=== PATIENT | male | born 1960 | race Caucasian/White ===

== ENCOUNTER → 2017-07-12 14:15 | Outpatient (CLI) | payer OTHER, SELFPAY ==
[2017-07-12 16:18] LABS: Anion Gap 8 (5-15); BUN 10 mg/dL (7-18); BUN/Creat Ratio 13.1 RATIO (10-20); Calcium,Total 8.7 mg/dL (8.5-10.1); Chloride 107 mmol/L (98-107); Cholesterol 197 mg/dL (200); Creatinine, Serum 0.76 mg/dL (0.70-1.30); EST Glomerular Filtration Rate 111 mL/min (>60); Est Glom Filt Rate - Afr Amer 134 mL/min (>60); Glucose 83 mg/dL (74-106); High Density Lipoprotein 32 mg/dL; Potassium 4.1 mmol/L (3.5-5.1); Sodium Level 141 mmol/L (136-145); Triglycerides 142 mg/dL; Very Low Density Lipoprotein 28 mg/dL (5-40)
== END ==
PROVIDERS: Family Provider Family Medicine; PCP Family Medicine; Visit Provider Family Medicine
DX: Z00.00 Encounter for general adult medical examination without abnormal findings (principal)
CPT/HCPCS: 36415; 80048; 80061

== ENCOUNTER → 2018-07-29 16:20 | Outpatient (CLI) | payer OTHER, SELFPAY ==
[2013-06-30 06:23] VITALS: BMI 27.1
--- NOTE | 2018-07-29 16:26 | RAD_ITS ---
STUDY: X-RAY - PELVIS AND RIGHT HIP REASON FOR EXAM: Male, 58 years old. Right hip pain. TECHNIQUE: 3 views of the pelvis and hip. COMPARISON: None. FINDINGS: There is a non-specific bowel gas pattern. There are multiple calcified phleboliths. Normal bilateral iliac wings, sacroiliac joints and visualized sacrum. Normal bilateral superior and inferior pubic rami. Normal pubic symphysis. Normal bilateral ischial tuberosities. There is evidence of bilateral total hip replacements. There is good alignment. RAD/HIP, UNI W/ Pelvis 2-3 Views IMPRESSION: Bilateral total hip replacements. There is good alignment. Electronically Signed: Karthik Perez, at 9:36 EDT , Service support ,
--- NOTE | 2018-07-29 16:26 | RAD_ITS ---
STUDY: X-RAY - LEFT KNEE REASON FOR EXAM: Male, 58 years old. Pain TECHNIQUE: 3 view(s) of the knee. COMPARISON: None. FINDINGS: Normal visualized distal femur. Normal visualized proximal tibia and fibula. Normal proximal tibiofibular articulation. Parenchyma along the medial tibial spine. There is mild to moderate degenerative arthrosis of the medial femorotibial compartment. There is severe degenerative arthrosis of the lateral femorotibial compartment with severe joint space narrowing. There is mild to moderate degenerative arthrosis of the patellofemoral articulation. There is a soft tissue prominence in the suprapatellar region suggesting a small volume joint effusion. The soft tissue structures are unremarkable. RAD/Knee 3 Views IMPRESSION: Severe degenerative changes lateral femoral tibial compartment, mild to moderate degenerative changes of the medial femoral tibial and patellofemoral joint with mild effusion. Electronically Signed: Dariana Mercado MD at 4:45 EDT , Service support ,
== END ==
PROVIDERS: Family Provider Family Medicine; PCP Family Medicine; Referring Provider Family Medicine; Visit Provider Family Medicine
DX: M25.562 Pain in left knee (principal); M25.551 Pain in right hip
CPT/HCPCS: 73502; 73562

== ENCOUNTER → 2019-07-11 12:53 | Outpatient (CLI) | payer OTHER, SELFPAY ==
--- NOTE | 2019-07-11 13:00 | VDLE_ITS ---
Reason For Study: Edema RIGHT GSV is normal. CFV is compressible, spontaneous, phasic, competent and demonstrates normal augmentation. FV is compressible, spontaneous, phasic, competent and demonstrates normal augmentation. POP V is compressible, spontaneous, phasic, competent and demonstrates normal augmentation. T/P Trunk is compressible. PTV is compressible. RT PerV is compressible. Procedure Exam performed in department. A preliminary report was called and/or faxed to [facility]. Interpretation Summary Deep veins of the right lower extremity are patent and compressible segmentally. There is no evidence of right lower extremity deep vein thrombosis. Valvular competence appears intact within the proximal deep venous system on the right . The right great saphenous vein appears patent and compressible segmentally. Ordering Physician: Tyler Bedolla Referring Physician: Corby Daniels Performed By: Bonnie Restrepo RVT
== END ==
PROVIDERS: PCP Family Medicine; Referring Provider Family Medicine; Visit Provider Family Medicine
DX: R60.0 Localized edema (principal)
CPT/HCPCS: 93971

== ENCOUNTER → 2020-01-15 15:39 | Outpatient (CLI) | payer OTHER, SELFPAY ==
[2013-06-30 06:23] VITALS: BMI 27.1
--- NOTE | 2020-01-15 15:42 | RAD_ITS ---
STUDY: X-RAY - LUMBAR SPINE REASON FOR EXAM: Male, 59 years old. Recent low back pain TECHNIQUE: 5 view(s) of the lumbar spine were obtained including oblique views. COMPARISON: None FINDINGS: Normal lumbar lordosis. There is no substantial scoliosis. There is a normal alignment of the vertebrae. There is multilevel endplate spondylosis of the lumbar vertebrae. There is multi-level degenerative disc disease with multi-level disc space narrowing. Facet joint osteoarthritis. Bilateral total hip replacement. There is atherosclerotic calcification of the abdominal aorta without a demonstrated aneurysm. RAD/L/S Spine Min 4 Views IMPRESSION: Degenerative changes of the spine, as detailed above. Electronically Signed: Karthik Perez, at 12:37 EDT , Service support ,
== END ==
PROVIDERS: PCP Family Medicine; Referring Provider Family Medicine; Visit Provider Family Medicine
DX: M54.9 Dorsalgia, unspecified (principal)
CPT/HCPCS: 72110

== ENCOUNTER → 2020-01-21 10:36 | Outpatient (CLI) | payer OTHER, SELFPAY ==
[2013-06-30 06:23] VITALS: BMI 27.1
[2020-01-21 13:01] LABS: Cholesterol 199 mg/dL (200); High Density Lipoprotein 34 mg/dL; Triglycerides 179 mg/dL; Very Low Density Lipoprotein 36 mg/dL (5-40)
== END ==
PROVIDERS: PCP Family Medicine; Referring Provider Family Medicine; Visit Provider Family Medicine
DX: I70.90 Unspecified atherosclerosis (principal)
CPT/HCPCS: 36415; 80061

== ENCOUNTER → 2020-07-21 16:22 | Outpatient (CLI) | payer OTHER, SELFPAY ==
[2013-06-30 06:23] VITALS: BMI 27.1
[2020-07-21 18:24] LABS: Anion Gap 4 (5-15); BUN 12 mg/dL (7-18); BUN/Creat Ratio 15.3 RATIO (10-20); Chloride 106 mmol/L (98-107); Cholesterol 178 mg/dL (200); Creatinine, Serum 0.78 mg/dL (0.70-1.30); EST Glomerular Filtration Rate 107 mL/min (>60); Est Glom Filt Rate - Afr Amer 129 mL/min (>60); Glucose 94 mg/dL (74-106); High Density Lipoprotein 37 mg/dL; Potassium 4.2 mmol/L (3.5-5.1); Sodium Level 140 mmol/L (136-145); Triglycerides 128 mg/dL; Very Low Density Lipoprotein 26 mg/dL (5-40)
== END ==
PROVIDERS: PCP Family Medicine; Referring Provider Family Medicine; Visit Provider Family Medicine
DX: I70.90 Unspecified atherosclerosis (principal)
CPT/HCPCS: 36415; 80048; 80061

== ENCOUNTER → 2021-01-26 16:34 | Outpatient (CLI) | payer OTHER, SELFPAY ==
[2021-01-26 18:24] LABS: Anion Gap 10 (5-15); BUN 9 mg/dL (7-18); BUN/Creat Ratio 11.9 RATIO (10-20); Calcium,Total 9.1 mg/dL (8.5-10.1); Chloride 105 mmol/L (98-107); Cholesterol 188 mg/dL (200); Creatinine, Serum 0.76 mg/dL (0.70-1.30); EST Glomerular Filtration Rate 111 mL/min (>60); Est Glom Filt Rate - Afr Amer 134 mL/min (>60); Glucose 86 mg/dL (74-106); High Density Lipoprotein 36 mg/dL; Potassium 4.4 mmol/L (3.5-5.1); Sodium Level 141 mmol/L (136-145); Triglycerides 169 mg/dL; Very Low Density Lipoprotein 34 mg/dL (5-40)
== END ==
PROVIDERS: PCP Family Medicine; Referring Provider Family Medicine; Visit Provider Family Medicine
DX: Z00.00 Encounter for general adult medical examination without abnormal findings (principal)
CPT/HCPCS: 36415; 80048; 80061

== ENCOUNTER → 2022-01-30 | Outpatient (CLI) | payer OTHER, SELFPAY ==
[2022-01-30 18:14] LABS: Absolute Lymphocyte Count 1.89 X10^3/uL (0.83-4.51); Absolute Neutrophil Count 5.8 X10^3/uL (2.0-7.7); Basophil# 0.08 X10^3/uL; Basophil% 0.9 % (0-1); Eosinophil# 0.28 X10^3/uL; Eosinophils% 3.2 % (0-5); Hematocrit 43.9 % (40-54); Hemoglobin 14.1 g/dL (13.0-16.5); Lymphocyte # 1.89 X10^3/ul (0.83-4.51); Lymphocyte % 21.6 % (19-41); Mean Corp Hgb Conc 32.1 g/dL (32-36); Mean Corpuscular Hgb 27.2 pg (27.0-32.0); Mean Corpuscular Volume 84.7 fL (80-94); Mean Platelet Vol. 8.2 fl (6.2-12.0); Monocyte# 0.62 X10^3/uL; Monocyte% 7.1 % (0-10); NRBC Flagged by Analyzer 0 % (0-5); Neutrophil # 5.82 X10^3/uL (2.7-7.7); Neutrophil % 66.7 % (47-70); Platelet Count 213 K/mm3 (150-450); RBC Distribution Width CV 14.3 % (11.6-14.6); RBC Distribution Width SD 44.2 fl (35.1-43.9); Red Blood Count 5.18 M/mm3 (4.6-6.2); White Blood Count 8.7 K/mm3 (4.4-11.0)
[2022-01-30 18:31] LABS: Anion Gap 7 (5-15); BUN 12 mg/dL (7-18); BUN/Creat Ratio 13.5 RATIO (10-20); Calcium,Total 9.3 mg/dL (8.5-10.1); Chloride 107 mmol/L (98-107); Cholesterol 187 mg/dL (200); Creatinine, Serum 0.89 mg/dL (0.70-1.30); EST Glomerular Filtration Rate 92 mL/min (>60); Est Glom Filt Rate - Afr Amer 111 mL/min (>60); Glucose 113 mg/dL (74-106); High Density Lipoprotein 35 mg/dL; Potassium 4.5 mmol/L (3.5-5.1); Sodium Level 141 mmol/L (136-145); Triglycerides 152 mg/dL; Very Low Density Lipoprotein 30 mg/dL (5-40)
== END | disposition home or self-care (01) ==
LOC: MFPLAB 16:37
PROVIDERS: PCP Family Medicine; Visit Provider Family Medicine
DX: Z00.00 Encounter for general adult medical examination without abnormal findings (principal)
CPT/HCPCS: 36415; 80048; 80061; 85025

== ENCOUNTER 2022-02-04 17:02 | Emergency (ER) | payer OTHER, SELFPAY ==
[2022-02-04 17:02] VITALS: BP 162/102; PULSE 121; RESP 16; TEMP 36.6; O2SAT 97; BMI 31.9
--- NOTE | 2022-02-04 17:24 | ED.RN ---
vein cleansed and wrapped with dressing.
--- NOTE | 2022-02-05 00:09 | EDS_ITS ---
HPI History of Present Illness HPI Narrative: Right ankle bleeding varicose vein. No significant trauma. Chief Complaint: Wound Informant: patient Onset/Context/Timing Onset: Today Context: Gradual Onset Timing: Intermittent Associated Symptoms Associated Symptoms: Negative for Parasthesia, Weakness or Loss of Funtion Narrative Narrative: 61-year-old male past medical history of varicose veins in his lower extremities. He is on no blood thinners. Denies any injury or trauma. Synergist or bleeding this evening. Try to get it to stop and Oozing. He denies any pain. Prior similar symptoms: No Recent Illness/Hospitalization: No PFSH PFSH no medical history Home Medications amitriptyline 50 mg tablet 50 mg PO DAILY 04/17/13 [History Last Taken 06/01/13] aspirin 325 mg tablet,delayed release 325 mg PO BIDCM ##60 07/02/13 [Rx Last Taken Unknown] hydrocodone-acetaminophen 5-325mg 5mg-325mg 1 - 2 tab PO Q6H PRN PRN MILD- MODERATE (PAIN SCALE 1-5) ##90 07/02/13 [Rx Last Taken Unknown] Allergy/AdvReac Type Severity Reaction Status Date / Time No Known Allergies Allergy Verified 02/04/22 17:06 Social History Smoking Status: Never smoker ROS ROS ED ROS Narrative Denies recent illness. Review of Systems ROS Unobtainable: Denies due to encephalopathy Constitutional Constitutional ED: Denies chills Eyes Eyes: Denies blurry vision ENT ENT ED: Denies ear pain Cardiovascular Cardiovascular: Denies chest pain Respiratory/Chest Respiratory/Chest: Denies cough Gastrointestinal Gastrointestinal: Denies abdominal pain Genitourinary Genitourinary ED: Denies dysuria Musculoskeletal Musculoskeletal: Denies arthralgias Integumentary Denies abscess Neurologic Neurologic: Denies headache(s) Psychiatric Psychiatric: Denies anxiety Endocrine Endocrinology: Denies polydipsia Hematologic/Lymphatic Hematologic/Lymphatic: Denies easy bleeding Allergic/Immunologic Allergic/Immunologic ED: Denies mouth swelling or tongue swelling EXAM Physical Exam Narrative Exam Narrative: 59-year-old male no acute distress. Vital signs stable. H EENT exam unremarkable. Lungs clear. Heart tachycardic rate about 115. Abdomen soft nontender. Moving all 4 extremities. Right ankle, medial aspect there are varicose veins. Currently none are actively bleeding. There is a small amount of dried blood. Right foot is neurovascular intact. Calf is nontender. Const Vital Signs: 02/04/22 17:02 Temperature 98 F Temperature Source Temporal Pulse Rate 121 H Respiratory Rate 16 Blood Pressure 162/102 H Blood Pressure Mean 122 Pulse Ox 97 Oxygen Delivery Method Room Air Positive well nourished, well developed and obese; Negative for cachectic, contractures or unkempt General Appearance ED: well developed and NAD; Negative for unkempt, cachectic or contractures Nutritional Appearance: obese; Negative for cachectic HEENT Reports moist mucous membranes normocephalic and atraumatic; Negative for trauma or tenderness Eyes PERRL General Eye ED: Negative for other Neck full ROM and supple Thyroid: Negative for tender Lymph Lymphatic: Negative for other Chest Wall inspection of chest normal and palpation of chest normal Chest: Negative for other Resp normal respiratory effort, no retractions and clear to auscultation bilaterally Effort and Inspection: Negative for pain with movement Auscultation: Negative for rales or rhonchi Cardio regular rhythm, S1 normal heart sound, S2 normal heart sound and no murmurs; Negative for regular rate Rate: tachycardic GI non-tender, non-distended and no masses Inspection: Negative for abdominal distention Auscultation: normoactive bowel sounds Palpation: soft; Negative for tender Back/Spine no CVA tenderness General Back: Negative for CVA tenderness Cervical Spine: Negative for cervical spine tenderness Thoracic Spine / Upper Back: Negative for thoracic spinal tenderness Lumbar Spine / Lower Back: Negative for lumbar spinal tenderness Extremity normal to inspection and full ROM Extremity Narrative: Small amount of dried blood right medial ankle. Varicose veins but not actively bleeding. No wound. General Extremety ED: Negative for cyanosis or edema General Extremity: Negative for cyanosis or edema Neuro oriented x3 and moves all extremities Sensorium / Orientation: alert, oriented to person, oriented to place and oriented to time; Negative for orientation impaired, confused, lethargic or stuporous Motor Exam: strength 5/5 throughout Psych mental status grossly normal Appearance: Negative for unkempt Speech: No other Mood & Affect: Negative for anxious Skin no wounds Lesions: no lesions Rashes: no rashes Trauma: Negative for abrasion or laceration MDM MDM MDM Narrative Medical decision making narrative: 61-year-old male with spontaneous bleeding from a right lower leg varicose vein. Currently bleeding is stopped. Nurses will clean and dress the area. He was instructed to rebleeds direct pressure. If unable to get it to stop return. Discharge Plan Triage Chief Complaint: Wound ED Provider: Carlos Bustos Dx/Rx/DC Orders Instructions: ED Varicose Veins Prescriptions: No Action amitriptyline 50 MG tablet 50 mg PO DAILY Label Comments: MOOD hydrocodone-acetaminophen 1 TABLET tablet 1 - 2 tab PO Q6H PRN PRN (Reason: MILD-MODERATE (PAIN SCALE 1-5)) Qty: 90 0RF Label Comments: PAIN aspirin 325 MG tablet 325 mg PO BIDCM Qty: 60 0RF Label Comments: BLOOD THINNER Primary Care Provider: Corby Daniels Referrals: Corby Daniels MD [Primary Care Provider] - As Needed Activity Restrictions/Additional Instructions: Direct pressure to area for 20-30 minutes if re-bleeds. Keep clean and covered. Follow up [facility] Dr[facility] Mccullough as needed Disposition Disposition: Home, Self Care Discharge Date/Time: 02/04/22 18:16
== END 2022-02-04 18:16 | disposition home or self-care (01) ==
PROVIDERS: Emergency Provider Emergency Medicine; PCP Family Medicine; Visit Provider Emergency Medicine
DX: I83.891 Varicose veins of right lower extremity with other complications (principal); E66.9 Obesity, unspecified
CPT/HCPCS: 99282

== ENCOUNTER → 2022-03-01 | Outpatient (CLI) | payer OTHER, SELFPAY ==
--- NOTE | 2022-03-01 10:12 | EKG12_ITS ---
Test Reason : PRE OP Blood Pressure : / mmHG Vent. Rate : 077 BPM Atrial Rate : 077 BPM P-R Int : 166 ms QRS Dur : 104 ms QT Int : 360 ms P-R-T Axes : 051 -37 073 degrees QTc Int : 407 ms Normal sinus rhythm Left axis deviation Abnormal ECG Confirmed by LUCIO MENDOZA, KYLE ([id number]), non linear editor NIKKY MEZA ([id number]) on 03/02/2022 7:43:50 AM Referred By: Zain Mccullough Confirmed By:KYLE VALDES MD
[2022-03-01 10:44] LABS: Hematocrit 44.7 % (40-54); Hemoglobin 14.6 g/dL (13.0-16.5); Mean Corp Hgb Conc 32.7 g/dL (32-36); Mean Corpuscular Hgb 27.1 pg (27.0-32.0); Mean Corpuscular Volume 82.9 fL (80-94); Mean Platelet Vol. 7.8 fl (6.2-12.0); Platelet Count 200 K/mm3 (150-450); RBC Distribution Width SD 41.6 fl (35.1-43.9); Red Blood Count 5.39 M/mm3 (4.6-6.2); White Blood Count 6.3 K/mm3 (4.4-11.0)
[2022-03-01 11:17] LABS: Anion Gap 3 (5-15); BUN 9 mg/dL (7-18); BUN/Creat Ratio 11.9 RATIO (10-20); Calcium,Total 9.4 mg/dL (8.5-10.1); Chloride 108 mmol/L (98-107); Creatinine, Serum 0.76 mg/dL (0.70-1.30); EST Glomerular Filtration Rate 111 mL/min (>60); Est Glom Filt Rate - Afr Amer 134 mL/min (>60); Glucose 95 mg/dL (74-106); Sodium Level 140 mmol/L (136-145)
== END | disposition home or self-care (01) ==
PROVIDERS: PCP Family Medicine; Referring Provider Surgery; Visit Provider Surgery
DX: Z01.812 Encounter for preprocedural laboratory examination (principal)
CPT/HCPCS: 36415; 80048; 85027; 93005

== ENCOUNTER → 2023-01-31 | Outpatient (CLI) | payer OTHER, SELFPAY ==
[2023-01-31 18:25] LABS: Anion Gap 5 (5-15); BUN 11 mg/dL (7-18); BUN/Creat Ratio 14.6 RATIO (10-20); Calcium,Total 8.8 mg/dL (8.5-10.1); Chloride 108 mmol/L (98-107); Cholesterol 178 mg/dL (200); Creatinine, Serum 0.76 mg/dL (0.70-1.30); EST Glomerular Filtration Rate 111 mL/min (>60); Est Glom Filt Rate - Afr Amer 134 mL/min (>60); Glucose 101 mg/dL (74-106); High Density Lipoprotein 37 mg/dL; PSA,Total - Annual Screen 4.15 ng/mL (0.00-4.00); Potassium 3.9 mmol/L (3.5-5.1); Sodium Level 139 mmol/L (136-145); Triglycerides 97 mg/dL; Very Low Density Lipoprotein 19 mg/dL (5-40)
[2023-01-31 18:27] LABS: Vitamin D,25 Hydroxy 29.7 ng/mL
== END | disposition home or self-care (01) ==
LOC: MFPLAB 16:10
PROVIDERS: PCP Family Medicine; Visit Provider Family Medicine
DX: Z00.00 Encounter for general adult medical examination without abnormal findings (principal)
CPT/HCPCS: 36415; 80048; 80061; 82306; 84153; G0103

== ENCOUNTER → 2023-06-11 | Outpatient (CLI) | payer OTHER, SELFPAY ==
--- NOTE | 2023-06-11 07:30 | EKG12_ITS ---
Test Reason : PREOP Blood Pressure : / mmHG Vent. Rate : 091 BPM Atrial Rate : 091 BPM P-R Int : 162 ms QRS Dur : 100 ms QT Int : 358 ms P-R-T Axes : 027 -38 064 degrees QTc Int : 440 ms Normal sinus rhythm Left axis deviation Abnormal ECG Confirmed by Garo Fernandez ([id number]), development editor NIKKY MEZA ([id number]) on 06/12/2023 9:17:37 AM Referred By: Garo Weinstein Confirmed By:Garo Fernandez
--- NOTE | 2023-06-11 07:31 | CT_ITS ---
CT LEFT LOWER EXTREMITY WITH 3-D IMAGING CLINICAL INDICATION: Pain in left leg. TECHNIQUE: Axial CT images of the left lower extremity (including left hip, left knee, and left ankle) was performed without IV contrast material. Coronal and sagittal reformats were provided. RADIATION DOSAGE (If Supplied By Facility): CTDIvol = ( 17.85 ) mGy, DLP = ( 1423.99 ) mGycm COMPARISON: Left knee radiographs dated 07/29/2018. FINDINGS: Bones: There are bilateral hip replacements with no acute periprosthetic fracture. There is tricompartment degenerative arthrosis of the left knee with joint space narrowing and marginal osteophyte formation, most pronounced in the lateral femorotibial compartment. Intact left ankle. There is degenerative arthrosis at the intercuneiform joints as well as second tarsometatarsal joint of the left foot. Osseous structures are intact without evidence of fracture or dislocation. No lytic or blastic osseous masses. Soft Tissues: There is a small left knee joint effusion. The deep soft tissue structures are unremarkable. The superficial soft tissues are unremarkable without evidence of edema, hematoma, or foreign body. CT/Extremity Lower without Contra IMPRESSION: Tricompartment degenerative arthrosis of the left knee, most pronounced in the lateral femorotibial compartment. Small left knee joint effusion. Electronically Signed: Galo Thornton MD at 9:40 EST Reading Location ID and State: [address] [place] [address] , Service support ,
--- OUTSIDE RECORDS SUMMARY | 2023-06-11 07:31 | XMS RPT_ITS | CCD ---
Author Name Unknown Address [facility] [facility] [address] [place] [address] Organization [facility] Care Team Providers Care Batt Machine Operator Name Role Phone Unavailable Primary Care Provider Unavailabl e Medications Current Medications Medication Drug Class(es) Dates Sig (Normalized) Sig (Original) sulfamethoxazole 800 mg / trimethoprim 160 mg oral tablet (1 source) Dihydrofolate Reductase Inhibitor Antibacterial, Sulfonamide Antimicrobial Start: 01-12-2022 End: 01-19-2022 take 1 tablet by mouth twice daily sulfamethoxazole -trimethoprim (BACTRIM DS) 800-160 mg per tablet Indications: Periorbital cellulitis of right eye Take 1 tablet by mouth twice daily for 7 days. 14 tablet 0 01/12/2022 01/19/2022 Active Completed/Discontinued Medications Medication Drug Class(es) Dates Sig (Normalized) Sig (Original) erythromycin 0.005 mg/mg ophthalmic ointment (1 source) Macrolide, Macrolide Antimicrobial Start: 01-12-2022 erythromycin (ROMYCIN) 5 mg/gram (0.5 %) ophthalmic ointment Indications: Hordeolum externum of right upper eyelid Use 1 application in the right eye three times daily. 3.5 g 0 01/12/2022 Active Problems Problem Classification Problem Date Documented Da te Episodic/Chronic Inflammation; infection of eye (except that caused by tuberculosis or sexually transmitteddisease) (1 source) Hordeolum externum of upper eyelid of right eye; Translations: [Hordeolum externum right upper eyelid] Episodic Skin and subcutaneous tissue infections (1 source) Cellulitis of periorbital region of right eye; Translations: [Periorbital cellulitis] Episodic Results Test Name Value Interpretation Reference Range Facil ity Vital Signs Date Time Vital Sign Value Performing Clinician Cullen ridley 01-12-2022 13:08-0400 Body temperature 98.29 [degF] Jun Back APRN.SENIOR GOVERNMENT PROGRAM ANALYST Work Phone: [facility] 01-12-2022 13:08-0400 Body weight 91.72 kg Jun Back APRN.SENIOR GOVERNMENT PROGRAM ANALYST Work Phone: [facility] 01-12-2022 13:08-0400 Diastolic blood pressure 88 mm[Hg] Jun Back RACE BOARD ATTENDANT.SENIOR GOVERNMENT PROGRAM ANALYST Work Phone: [facility] 01-12-2022 13:08-0400 Heart rate 81 /min Jun Back RACE BOARD ATTENDANT.SENIOR GOVERNMENT PROGRAM ANALYST Work Phone: [facility] 01-12-2022 13:08-0400 Respiratory rate 21 /min Jun Back RACE BOARD ATTENDANT.SENIOR GOVERNMENT PROGRAM ANALYST Work Phone: [facility] 01-12-2022 13:08-0400 SaO2% (BldA) [Mass fraction] 97 % Jun Back RACE BOARD ATTENDANT.SENIOR GOVERNMENT PROGRAM ANALYST Work Phone: [facility] 01-12-2022 13:08-0400 Systolic blood pressure 144 mm[Hg] Jun Back RACE BOARD ATTENDANT.SENIOR GOVERNMENT PROGRAM ANALYST Work Phone: [facility] Encounters Encounter Date Encounter Type Care Provider Facility Start: 01-12-2022 End: 01-12-2022 ambulatory Facility:[facility] Start: 01-12-2022 End: 01-12-2022 Patient encounter procedure Jun Back APRN.SENIOR GOVERNMENT PROGRAM ANALYST Work Phone: [facility] Plan of Treatment Date Care Activity Detail Author Start: 12-29-2021 Influenza vaccination INFLUENZA (#1) [facility] Start: 01-27-2021 COVID-19 VACCINE (3 - Booster for Moderna series) COVID-19 VACCINE (3 - Booster for Moderna series) [facility] Start: 2014 PROSTATE CANCER SCRE ENING DISCUSSION PROSTATE CANCER SCREENING DISCUSSION [facility] Start: 2009 SHINGRIX VACCINE (1 of 2) SHINGRIX V ACCINE (1 of 2) [facility] Start: 2004 COLOGUARD (FIT-DNA) COLOGUARD (FIT-D NA) [facility] Start: 2004 Colonoscopy COLONOSCOPY [facility] Start: 2004 COLORECTAL CANCER SCREENING COLORECTAL CANCER SCREENING [facility] Start: [address] COLONOGRAPHY [facility] Start: 2004 DIABETES SCREEN DIABETES SCREEN [facility] Start: 2004 FECAL OCCULT BLOOD FECAL OCCULT BLOO D [facility] Start: 2004 SIGMOIDOSCOPY SIGMOIDOSCOPY [facility] Start: 1994 LIPID SCREEN LIPID SCREEN [facility] Start: 1978 Urine microalbumin profile DTAP,TDAP ,TD (1 - Tdap) [facility] Start: 1977 HEPATITIS C SCREENING HEPATITIS C SC REENING [facility] Start: 1977 HIV SCREENING HIV SCREENING [facility] Start: 1971 Adult depression scr eening assessment DEPRESSION SCREENING [facility] Payers Date Payer Category Payer Unknown MMO MMO [employer] [id number] 2018-Present [phone] [address] [place] [address] PPO [id number] 2018 Unknown [id number] Social History Date Type Detail Facility Start: 01-12-2022 Tobacco smoking status NHIS Never smoked tobacco [facility] Start: 01-12-2022 Tobacco use and exposure Smokeless tobacco non-user [facility] Start: 1960 Sex Assigned At Not on file [facility] Start: 01-02-2022 End: 01-12-2022 Exposure to SARS-CoV-2 (event) Not sure [facility] NEGATED: Highlighted rowStart: NINF History of tobacco use Passive smoker [facility] Progress note 01-12-2022 Note Date & Type Note Facility 01-12-2022 Note HNO ID: [id number] Author: Jun Back APRN.SENIOR GOVERNMENT PROGRAM ANALYST Service: ? Author Type: Nurse Practitioner Type: Progress Notes Filed: 01/12/2022 1:43 PM Note Text: Subjective HPI HPI Anny Amin is a 61 year old male who presents today for CC of right eyelid swelling, redness, pain. This started 3 days ago/getting worse. Has tried nothing for relief. Symptoms are worsened by nothing. Risk factors reports had a stye initially. Denies visual changes, anterior/posterior eye pain. Denies eye injury. Patient not known to [facility], denies renal/hepatic disease. .Patient presents with: Eye Problem: Right eye lid swollen x 3 days No past medical history on file. No past surgical history on file. ALLERGIES Patient has no allergy information on record. MEDICATIONS sulfamethoxazole-trimethoprim (BACTRIM DS) 800-160 mg per tablet Take 1 tablet by mouth twice daily for 7 days. erythromycin (ROMYCIN) 5 mg/gram (0.5 %) ophthalmic ointment Use 1 application in the right eye three times daily. No family history on file. Social History Tobacco Use Smoking status: Never Passive exposure: Never Smokeless tobacco: Never ROS Objective Blood pressure 144/88, pulse 81, temperature 36.8 ?C (98.3 ?F), resp. rate 21, weight 91.7 kg (202 lb 3.2 oz), SpO2 97 %. Physical Exam Constitutional: General: He is not in acute distress. Appearance: He is not toxic-appearing or diaphoretic. HENT: Head: Normocephalic and atraumatic. Eyes: Pulmonary: Effort: Pulmonary effort is normal. No accessory muscle usage or respiratory distress. Neurological: Mental Status: He is alert and oriented to person, place, and time. ASSESSMENT/PLAN: 1. Periorbital cellulitis of right eye - ICD9: 682.0, ICD10: L03.213 (primary diagnosis) Treat with bactrim Worsening s/s go to ER Continued s/s see pcp or eye dr - SULFAMETHOXAZOLE 800 MG-TRIMETHOPRIM 160 MG TABLET 2. Hordeolum externum of right upper eyelid - ICD9: 373.11, ICD10: H00.011 Warm compresses And erythromycin ointment F/u for contained s/s. - ERYTHROMYCIN 5 MG/GRAM (0.5 %) EYE OINTMENT Agrees to plan Jun Back APRN.[facility] History of Present illness Narrative 01-12-2022 Jun Back APRN.[facility] - 01/12/2022 1:35 PM EDT Note Date & Type Note Facility 01-12-2022 History of Presen t illness Narrative Images from the original note were not included. Subjective HPI HPI Anny Amin is a 61 year old male who presents today for CC of right eyelid swelling, redness, pain. This started 3 days ago/getting worse. Has tried nothing for relief. Symptoms are worsened by nothing. Risk factors reports had a stye initially. Denies visual changes, anterior/posterior eye pain. Denies eye injury. Patient not known to [facility], denies renal/hepatic disease. .Patient presents with: Eye Problem: Right eye lid swollen x 3 days No past medical history on file. No past surgical history on file. ALLERGIES Patient has no allergy information on record. MEDICATIONS sulfamethoxazole-trimethoprim (BACTRIM DS) 800-160 mg per tablet Take 1 tablet by mouth twice daily for 7 days. erythromycin (ROMYCIN) 5 mg/gram (0.5 %) ophthalmic ointment Use 1 application in the right eye three times daily. No family history on file. Social History Tobacco Use Smoking status: Never Passive exposure: Never Smokeless tobacco: Never ROS Objective Blood pressure 144/88, pulse 81, temperature 36.8 C (98.3 F), resp. rate 21, weight 91.7 kg (202 lb 3.2 oz), SpO2 97 %. Physical Exam Constitutional: General: He is not in acute distress. Appearance: He is not toxic-appearing or diaphoretic. HENT: Head: Normocephalic and atraumatic. Eyes: Pulmonary: Effort: Pulmonary effort is normal. No accessory muscle usage or respiratory distress. Neurological: Mental Status: He is alert and oriented to person, place, and time. ASSESSMENT/PLAN: 1. Periorbital cellulitis of right eye - ICD9: 682.0, ICD10: L03.213 (primary diagnosis) Treat with bactrim Worsening s/s go to ER Continued s/s see pcp or eye dr - SULFAMETHOXAZOLE 800 MG-TRIMETHOPRIM 160 MG TABLET 2. Hordeolum externum of right upper eyelid - ICD9: 373.11, ICD10: H00.011 Warm compresses And erythromycin ointment F/u for contained s/s. - ERYTHROMYCIN 5 MG/GRAM (0.5 %) EYE OINTMENT Agrees to plan Jun Back APRN.[facility] documented in this encounter [facility] Evaluation note Note Date & Type Note Facility documented in this encounter [facility] Summary Purpose Family History No Family History Records Found Advance Directives No Advanced Directives Records Found Additional Source Comments Source Comments (unrecognize d section and content) In the event this informatio n is protected by the Federal Confidentiality of Alcohol and Drug Abuse Patient Records regulations: The Federal rules restrict any use of the information to criminally investigate or prosecute any alcohol or drug abuse patient.[facility] Reason for Visit (unrecogniz ed section and content) (unrecognized sect ion and content) No Status Records Found INFORMATION SOURCE (unrecogn ized section and content) FOR RECORDS PERTAINING TO PATIENTS WHO ARE OR HAVE BEEN ENROLLED IN A CHEMICAL DEPENDENCY/SUBSTANCEABUSE PROGRAM, SOME INFORMATION MAY BE OMITTED. This clinical summary was aggregated from multiple sources. Caution should be exercised in using it in the provision of clinical care. This summary normalizes information from multiple sources, and as a consequence, information in this document may materially change the coding, format and clinical context of patient data. In addition, data may be omitted in some cases. CLINICAL DECISIONS SHOULD BE BASED ON THE PRIMARY CLINICAL RECORDS. [employer] provides no warranty or guarantee of the accuracy or completeness of information in this document.
[2023-06-11 08:48] LABS: Absolute Lymphocyte Count 1.62 X10^3/uL (0.83-4.51); Absolute Neutrophil Count 5.7 X10^3/uL (2.0-7.7); Basophil# 0.08 X10^3/uL; Eosinophil# 0.11 X10^3/uL; Eosinophils% 1.4 % (0-5); Hematocrit 47.4 % (40-54); Hemoglobin 14.8 g/dL (13.0-16.5); Lymphocyte # 1.62 X10^3/ul (0.83-4.51); Lymphocyte % 20.3 % (19-41); Mean Corp Hgb Conc 31.2 g/dL (32-36); Mean Corpuscular Hgb 26.6 pg (27.0-32.0); Mean Corpuscular Volume 85.3 fL (80-94); Mean Platelet Vol. 8.1 fl (6.2-12.0); Monocyte# 0.45 X10^3/uL; Monocyte% 5.6 % (0-10); NRBC Flagged by Analyzer 0 % (0-5); Neutrophil # 5.69 X10^3/uL (2.7-7.7); Neutrophil % 71.4 % (47-70); Platelet Count 258 K/mm3 (150-450); RBC Distribution Width CV 13.9 % (11.6-14.6); RBC Distribution Width SD 43.1 fl (35.1-43.9); Red Blood Count 5.56 M/mm3 (4.6-6.2)
[2023-06-11 10:07] LABS: Anion Gap 4 (5-15); BUN 12 mg/dL (7-18); Calcium,Total 9.4 mg/dL (8.5-10.1); Chloride 111 mmol/L (98-107); Creatinine, Serum 0.92 mg/dL (0.70-1.30); EST Glomerular Filtration Rate 88 mL/min (>60); Est Glom Filt Rate - Afr Amer 106 mL/min (>60); Glucose 109 mg/dL (74-106); Sodium Level 141 mmol/L (136-145)
[2023-06-11 14:30] LABS: Hemoglobin A1c 5.9 % (3.8-5.6)
== END | disposition home or self-care (01) ==
PROVIDERS: PCP Family Medicine; Referring Provider Orthopaedic Surgery; Visit Provider Orthopaedic Surgery
DX: M25.562 Pain in left knee (principal); M21.062 Valgus deformity, not elsewhere classified, left knee; M17.12 Unilateral primary osteoarthritis, left knee
CPT/HCPCS: 36415; 73700; 80048; 83036; 85025; 93005

== ENCOUNTER 2023-07-30 09:11 | Observation (INO) | payer OTHER, SELFPAY ==
[2023-07-19 13:52] LABS: Magnesium 2.4 mg/dL (1.6-2.6)
[2023-07-19 14:03] LABS: Anion Gap 5 (5-15); BUN 12 mg/dL (7-18); BUN/Creat Ratio 14.4 RATIO (10-20); Calcium,Total 9.5 mg/dL (8.5-10.1); Chloride 107 mmol/L (98-107); Cholesterol 210 mg/dL (200); Creatinine, Serum 0.84 mg/dL (0.70-1.30); EST Glomerular Filtration Rate 98 mL/min (>60); Est Glom Filt Rate - Afr Amer 119 mL/min (>60); Glucose 94 mg/dL (74-106); High Density Lipoprotein 37 mg/dL; Potassium 4.2 mmol/L (3.5-5.1); Sodium Level 139 mmol/L (136-145); Triglycerides 166 mg/dL; Very Low Density Lipoprotein 33 mg/dL (5-40)
[2023-07-19 14:07] LABS: Vitamin D,25 Hydroxy 27.9 ng/mL
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
[2023-07-30] VITALS (14 sets, daily range): BP systolic 86–146; BP diastolic 59–81; PULSE 53–106; RESP 14–22; TEMP 36.3–36.8; O2SAT 94–100; BMI 30.2
[2023-07-30] MEDS: Lactated Ringers 1,000 ML 999 ML IV ×2 (07:49→12:30)
[2023-07-30] MEDS: Magnesium 1 GM over 15 mins IV (07:49)
[2023-07-30] MEDS: Celecoxib 200 MG Capsule 400 MG PO (07:50)
[2023-07-30] MEDS: Acetaminophen 500 MG Tablet 1000 MG PO ×3 (07:50→21:28)
[2023-07-30] MEDS: Gabapentin 600 MG Tablet PO (07:50)
[2023-07-30 08:01] LABS: Bedside Glucose 95 mg/dL (74-106)
[2023-07-30] MEDS: Vancomycin IV 1,000 MG/200 ML BAG 200 MG IV (08:25)
--- NOTE | 2023-07-30 09:12 | RAD_ITS ---
STUDY: X-RAY - LEFT KNEE REASON FOR EXAM: Male, 63 years old. Post op -- AP and Lateral xray of operative knee in PACU. TECHNIQUE: 2 views of the left knee. COMPARISON: Left knee radiographs dated 07/29/2018. FINDINGS: There are new postoperative changes related to left total knee arthroplasty with patellar resurfacing. There is a vertical staple line along the anterior aspect of the knee. There is gas in the patellofemoral joint recess and anterior soft tissues, compatible with recent surgery. The orthopedic hardware components are intact. There is no periprosthetic fracture. Normal proximal tibiofibular articulation. RAD/Knee 1 or 2 Views IMPRESSION: New postoperative changes related to left total knee arthroplasty. Electronically Signed: Galo Thornton MD at 12:08 EDT ,
[2023-07-30] MEDS: TXA 1000mg in NS100 100ml (IVPB at Incision) 660 MG IV (09:37)
[2023-07-30] MEDS: Cefazolin 2 GM in 0.9% Normal Saline (100mL Bag) 100 ML IV (09:43)
--- NOTE | 2023-07-30 09:45 | KNEE_PTH ---
PATIENT: ANNY AMIN LOC: [facility] U#:[id number] AGE/SX: 63/M ROOM: MI322 RE07/30/[address]: Dr. Moshe Hylton MD : 1960 BED: 1 DIS: 07/31/2023 SPEC #: [id number] RECD: 07/30/23 13:50 STATUS: JENNIFER GOLD #: [id number] REGINALDO: 07/30/23 09:[address]: Moshe Hylton DEPT: SURGICAL PATHOLOGY RECD BY: Cheryl Quesada ENTERED: 07/31/23 08:45 SP TYPE: TOTAL KNEE OTHR DR: DO Dr. Corby Morrell MD Tissues: Knee, NOS Procedures: Decalcification bone/plaque Surgery Specimen Level IV HEADER OPERATION: ELVIN, Robotic assisted total left knee arthroplasty PRE-OP DIAGNOSIS: Osteoarthritis grade IV left knee TISSUE SUBMITTED: Bone and soft tissue left knee MICROSCOPIC DIAGNOSIS Bone and soft tissue, LEFT knee, total knee replacement/resection: Pieces of bone with degenerative osteoarthritic changes. Fibroadipose tissue, fibroconnective tissue and reactive synovial tissue. : 08/03/23 MICROSCOPIC DESCRIPTION Slides are reviewed. GROSS DESCRIPTION Received is one container designated bone and soft tissue left knee. The specimen consists of multiple fragments of mchugh-yellow bone measuring in aggregate 11.0 x 9.0 x 3.5 cm. Also in the specimen container are multiple fragments of yellow-white soft tissue attached to the piece of bone measuring in aggregate 4.0 x 3.0 x 1.0 cm. A number of bony fragments contain articular surfaces consistent with tibial plateau and femoral condyle and displaying prominent osteophyte formation, eburnation and bone erosion. Wagon Driver Salesperson sections are submitted in two cassettes as follows: 1 - soft tissue, 2 - bone after decalcification. / 07/31/23 TC:5 CPT: 25482, 51669
[2023-07-30] MEDS: dexAMETHasone 10 MG/ML Vial IV (10:35)
--- NOTE | 2023-07-30 10:59 | PCM.OPRPT ---
Report of Operation Date of Procedure: 07/30/23 Pre-Operative Diagnosis: Left knee primary osteoarthritis Right knee primary osteoarthritis Post-Operative Diagnosis: Left knee primary osteoarthritis Right knee primary osteoarthritis Surgery/Procedure Performed:: Left knee minimally invasive robotic assisted total knee replacement Right knee intra-articular corticosteroid injection Description of Surgical Findings:: Stable knee with good patella tracking Surgeon: Moshe Hylton development system efficiency manager: Jb Denise Type of Anesthesia: Spinal Anesthesiologist: Lazaro Castillo Special Medications: 2 g Ancef, 1 g TXA at incision, 1 g TXA closure, 10 mg Decadron, joint cocktail (5 mg Duramorph, 30 mL of 0.5% Ropivicaine, 1000 units of epinephrine, 30 mg of Toradol) Specimen's removed: Bony cuts Estimated Blood Loss (mL): 150 Fluids Replaced: 750 ML CRYSTALLOID Description of Procedure: Implants used: 1. [place] size 5 triathlon cruciate retaining distal femoral press-fit component 2. [place] size 6 press-fit tritanium tibial baseplate 3. [place] X3 12 mm CS polyethylene 4. [place] X3 38 mm asymmetric patella Brief history operative indications: 63-year-old M with history of left knee osteoarthritis with radiographic findings with loss of joint space, osteophyte formation and subchondral sclerosis. Failed conservative measures as mentioned in the H&P. Discussion of total knee arthroplasty as well as risk and benefits were discussed the patient including but not limited to blood loss, DVTs, PEs, neurovascular damage, general risk of anesthesia including loss of life, and stiffness or instability were discussed with patient. Patient demonstrated understanding and was able to sign informed consent. Procedure: On the date of procedure patient's left lower extremity was marked in the preoperative area. The patient was then taken back to the operating room where the patient was placed on the table in the supine position. All bony prominences were identified a well-padded. Anesthesia assumed control of the C-spine and airway and remained controlled throughout the remainder of the procedure. A tourniquet was placed on the left upper thigh and the leg was prepped in a sterile fashion. The surgeon then scrubbed at this time .Upon reentering the room left lower extremity was draped in a standard orthopedic fashion. A timeout was then called and everyone agreed upon the side, the site, the procedure to be performed, patient's identity and antibiotics given. Esmarch bandage was used to exsanguinate the extremity and the tourniquet was placed up to 250 mmHg with the knee in flexion. A midline skin incision was made and sharp dissection was taken down through skin subcutaneous tissue and fat. The standard medial parapatellar incision was made and the patella was subluxed laterally. An Appropriate deep MCL release was done and the fat pad was resected. Our attention was then directed to the patella. The patella was everted and a flat resection was made. The knee was then flexed up in 2 femoral pins were placed inside the incision and 2 tibial pins were placed outside the incision in the medial tibia bicortically. Once this was completed the 2 checkpoints in the femur and tibia were placed. Knee was then flexed up and the bony landmarks were registered. Once this was completed knee was taken through range of motion and manually stressed allowing us to a plan for an appropriate tibial cut. The robotic arm was brought into the field sterilely and checkpoint and saw were registered. Based on the patient's deformity the tibial cut was made neutral to the tibial axis. At this time the tensioner was then placed in the joint and ligament tension was checked at 90 degrees and full extension. Based on the patient's ligamentous tension appropriate adjustments were made to the operative plan and ligament releases were done. Once we were happy with our operative plan with balanced flexion and extension gaps our attention was directed to the femur. The robot was brought into the field sterilely and registered. Posterior condylar cuts, anterior chamfer cuts and anterior cuts were appropriately made for a size 5 femur. When these were completed the saws were switched out in the distal femoral and posterior chamfer cuts were made. Protecting the soft tissue throughout this time. A size 6 tibial base plate was selected. the knee was flexed to 90 degrees and the soft tissues and posterior osteophytes were removed from the joint. 40 cc of the periarticular injection was injected into the posterior medial corner of the joint. Based on the significant valgus preoperative deformity significant lateral releases were performed both in flexion and extension to help balance the gaps. The appropriate trials were then placed on the femur and tibia. A trial polyethylene was trialed to ensure proper balancing and stability of the knee. The appropriate tibial internal rotation was then marked with a bovie. Our attention was then directed to the patella. The lug holes were drilled and the patella trial was placed. Patellar tracking was checked and initially showed lateral tracking in relation to the patient's chronic valgus deformity. Tourniquet was let down and the patella continue to track laterally. We then did a lateral release at this time the patella tracking was deemed appropriate. Once we were happy lug holes were drilled for the femur and trial components were removed. the tibia was subluxed and pinned into place and the keel was punched and drilled appropriately. Final components were verified and opened, and cement was mixed in a vacuum. [employer] Simplex cement was used. The wound was copiously irrigated with normal saline. When the cement was ready the components were impacted into place starting with the tibia, femur and finally cementing the patella. The trial poly component was placed and the knee was placed in full extension. All excess cement was removed in the process. Once the cement had cured the tracking, alignment and balance were verified and a size 12 mm CS polyethylene component was placed. Once the final components were placed a 3-minute dilute Betadine lavage was performed followed by an Irrisept lavage was performed and the wound was copiously irrigated with normal saline solution and the periarticular injection was given. The wound was closed in a layer montano fashion using #1 vicryl interrupted sutures for the arthrotomy, 2-0 interrupted Vicryl suture for the subcuticular layer and rudy for final skin closure. A sterile compressive dressing was then placed. At this time our attention was directed towards the right knee. The lateral suprapatellar portal was palpated. This area was sterilely prepped. Under my supervision the physician unit assistant injected 2 cc of Kenalog and 4 cc Marcaine into the knee. Needle was removed and Band-Aid was placed. The patient was then awakened from anesthesia, transferred to the rchitina and transferred to the PACU for recovery. Post op plan DVT ppx: ASA 81mg BID, thigh high compression stockings Follow up: in office in 2 weeks for wound check PT: to start POD #0 at hospital, outpatient PT should be arranged. Patient had positive staph screening preoperatively. He will be placed on doxycycline postoperatively 100 mg p.o. twice daily for 2 weeks. My physician unit assistant was a vital part of this case. He was important in appropriate retraction during the case, and protection of soft tissues during bony cuts. His intimate knowledge of the case and my steps aided in safe and expedient completion of the procedure as well as appropriate position of the leg during the case. He was also vital in assisting with closure under my direct supervision. Due to the complexity of this case robotic arm was used to assist in the surgery to improve accuracy and clinical outcomes. Complications No intraoperative complications Admit VTE Documentation VTE Present on Admission: No VTE Mechan Device Prophylaxis: SCD's and Thigh High YOSHI Hose VTE Pharm Prophylaxis ordered?: Yes
[2023-07-30] MEDS: TXA 1000mg in NS100 100ml (IVPB at Closure) 660 MG IV (11:02)
[2023-07-30] MEDS: JPS (Morphine 10mg/ml) OPERA.SITE (11:05)
[2023-07-30] MEDS: Triamcinolone Acetonide 40 MG/ML Vial (11:30)
[2023-07-30] MEDS: Ensure Surgery 237 ML LIQUID PO ×2 (13:46→17:03)
[2023-07-30] MEDS: Aspirin 81 MG TAB.CHEW PO (16:44)
[2023-07-30] MEDS: Cefazolin 1 GM/50 ML BAG IV (17:45)
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
[2023-07-30] MEDS: Atorvastatin Calcium 10 MG Tablet PO (21:28)
[2023-07-30] MEDS: Senna/Docusate Sodium 1 Tablet 2 TABLET PO (21:28)
[2023-07-31] MEDS: Cefazolin 1 GM/50 ML BAG IV (03:08)
[2023-07-31 03:09] VITALS: BP 126/82; PULSE 57; RESP 18; TEMP 36.5; O2SAT 100
[2023-07-31] MEDS: Acetaminophen 500 MG Tablet 1000 MG PO ×2 (06:02→13:43)
[2023-07-31 06:50] LABS: Hematocrit 40.8 % (40-54); Hemoglobin 13.3 g/dL (13.0-16.5); Mean Corp Hgb Conc 32.6 g/dL (32-36); Mean Corpuscular Hgb 27.2 pg (27.0-32.0); Mean Corpuscular Volume 83.4 fL (80-94); Mean Platelet Vol. 8.3 fl (6.2-12.0); Platelet Count 181 K/mm3 (150-450); RBC Distribution Width SD 42.5 fl (35.1-43.9); Red Blood Count 4.89 M/mm3 (4.6-6.2); White Blood Count 14.1 K/mm3 (4.4-11.0)
[2023-07-31 07:40] LABS: Anion Gap 5 (5-15); BUN 13 mg/dL (7-18); BUN/Creat Ratio 16.9 RATIO (10-20); Calcium,Total 9.2 mg/dL (8.5-10.1); Chloride 110 mmol/L (98-107); Creatinine, Serum 0.77 mg/dL (0.70-1.30); EST Glomerular Filtration Rate 108 mL/min (>60); Est Glom Filt Rate - Afr Amer 131 mL/min (>60); Estimated Creatinine Clearance 105.61 ml/min; Glucose 126 mg/dL (74-106); Potassium 4.1 mmol/L (3.5-5.1); Sodium Level 139 mmol/L (136-145)
[2023-07-31] MEDS: Senna/Docusate Sodium 1 Tablet 2 TABLET PO (08:04)
[2023-07-31] MEDS: Aspirin 81 MG TAB.CHEW PO ×2 (08:05→16:21)
[2023-07-31] MEDS: Famotidine 20 MG Tablet PO (08:05)
[2023-07-31] MEDS: Ensure Surgery 237 ML LIQUID PO ×3 (08:09→16:21)
[2023-07-31 09:07] VITALS: BP 120/67; PULSE 59; RESP 16; TEMP 36.4; O2SAT 98
--- NOTE | 2023-07-31 11:18 | CASEMGMT ---
ROSE PARKER Assessment Face to Face with patient for initial transition planning/care coordination assessment. ROSE PARKER introduced self and role at [facility], pt voices understanding. Pt is A&Ox4 and is resting comfortably in the chair and is calm. Care providers, pharmacy, and demographics verified. Admitting dx: Lt Total Knee LACE Strata: 1 PCP: Frances Specialists: Concetta this stay Preferred Pharmacy: [facility] [place] Insurance: [facility] Prescription Benefit: Yes LNOK: Toni Gaviria (son) Living Arrangements: Pt lives alone on the 3rd level of an apartment complex with 18 steps to manage to get to his apartment. ADLs/IADLs: Ind. Pt states that he feels that he did well walking with nursing as well as therapy. Transportation: Self, friends. Pt states that all of his family live out of town. Pt is concerned about transportation home from the hospital. Pt states that he has 3 friends that might be able to drive me home depending on when I can get discharged. This ROSE PARKER talked to Dr. Rodriguez (who is consulted on this pt) and the MD states that we are waiting for Dr. Hylton to write the DC instructions. Pt was able to do well with therapy today and states that he would be able to get in and out of a vehicle per himself. Pt educated that we may be able to provide transportation via the hospital van if all of his resources are unable to help. Pt reassured at this time. DME: Walker, cane, and fly raiser lockstitch at home. Pt denies all other DME uses or needs. HHC/SNF: Denies history or needs Pt?s goal: Home with OP Therapy Plan: Pt did well with therapy and was able to manage steps as well. Pt states that he already has an appt set up with OP therapy through [facility]. The appt is scheduled for tomorrow (08/01/23) at 1030am. Pt states that he does not need a script for this. Pt states that he will be able to drive himself to his appt at this time. Pt states that if he changes his mind and feels uncomfortable with this his friend(s) may be able to drive him. Pt advised that it would be safer for the pt to get a ride if possible. Pt reports that he is only taking extra strength Tylenol for pain. DC plan updated. ROSE PARKER to follow for safe DC from [facility]. Hannah Farooq RN CM
[2023-07-31 11:34] VITALS: BP 116/57; PULSE 70; RESP 16; TEMP 36.5; O2SAT 98
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
[2023-07-31 14:18] VITALS: BP 106/58; PULSE 81; RESP 16; TEMP 36.3; O2SAT 98
--- NOTE | 2023-07-31 16:30 | PCM.PN.ORT ---
Subjective Subjective Patient sitting at bedside. States pain is been very well-managed. Denies chest pain, shortness of breath, calf pain, nausea vomiting. No other complaints. Not ready for discharge home. Patient reports he has his Tylenol and aspirin at home, which he was prescribed on his preop appointment. Patient reports he has not filled his pain medication. Objective Data Objective Data Vital Signs: Vital Signs Temp Pulse Resp BP Pulse Ox O2 Del Method O2 Flow Rate 97.4 F L 81 16 106/58 L 98 Room Air 4 07/31/23 14:18 07/31/23 14:18 07/31/23 14:18 07/31/23 14:18 07/31/23 14:18 07/31/23 14:18 07/30/23 12:15 Oxygen Flow Rate (L/min) 4 Oxygen Delivery Method Room Air Weight: 90 kg Body Mass Index (BMI) 30.2 Intake & Output: Intake and Output for Last 24 Hours 07/29/23 07/30/23 07/31/23 23:59 23:59 23:59 Intake Total 3182 / 3182 500 / 500 Output Total 700 / 700 Balance 3182 / 3182 -200 / -200 Lab / Micro Data 07/31/23 06:25 07/31/23 06:25 Labs: Laboratory Results - last 24 hr 07/31/23 06:25: WBC 14.1 H, RBC 4.89, Hgb 13.3, Hct 40.8, MCV 83.4, MCH 27.2, MCHC 32.6, RDW Std Deviation 42.5, RDW Coeff of Zeke 14.0, Plt Count 181, MPV 8.3, Sodium 139, Potassium 4.1, Chloride 110 H, Carbon Dioxide 24.0, Anion Gap 5, BUN 13, Creatinine 0.77, Estim Creat Clear Calc 105.61, Est GFR (MDRD) Af Amer 131, Est GFR (MDRD) Non-Af 108, BUN/Creatinine Ratio 16.9, Glucose 126 H, Calcium 9.2 Micro: Microbiology 07/19/23 12:23 Swab (Method) Nasal Screen MRSA/MSSA - Final Physical Exam Narrative Exam I found patient sitting comfortably at bedside in the chair. Cranial nerves II through gross intact. Patient full range of motion the upper extremities without limitations. Patient has no respiratory distress speaking in full sentences. Patient dressings are clean dry intact. No calf tenderness. He has good plantarflexion dorsiflexion of the left ankle and foot. Neurovascular is otherwise intact. Const alert and oriented x3 HEENT normocephalic Eyes PERRL Resp normal respiratory effort Effort and Inspection: able to speak in complete sentences Cardio regular rate Extremity normal capillary refill Skin no rashes or lesions noted Neuro CN's II-XII intact bilaterally Psych mental status grossly normal Assessment & Plan Assessment/Plan (1) Status post total left knee replacement not using cement: PLAN: 1. Continue all pain medications as prescribed 2. Aspirin 81 mg 1 p.o. every 12 hours x 30 days for postop DVT prophylaxis 3. Encourage incentive spirometry 4. Elevate and ice left knee. 5. Weight-bear, and ambulate as tolerated with walker 6. YOSHI hose on during the day off at night 7. Patient can shower for 08/03/2023 8. Begin physical therapy as scheduled with orthopedics and sports medicine tomorrow 9. Discharge home tonight. 10. Follow-up as scheduled in 2 weeks
--- NOTE | 2023-07-31 16:34 | PCM.DC ---
Discharge Instructions Diet Discharge Diet: No restrictions Activity Discharge Activity: May Not Drive and Use Walker May shower in (days): 3 May resume sexual activity in: No Restrictions Ice area for (Minutes): 20 Weight Bearing Status: Weight bearing as tolerated Keep extremity elevated above heart level: Operative Extremity Dressing / Incision Call your doctor if your incision/area has: Continuous Slow Oozing, Sudden Increased Bleeding, Increased Pain/ Swelling, Increased Redness, Foul Smelling Discharge and Swelling at the incision site Call your doctor if you observe: Fever of 101 or Higher Change Dressing in: leave in place till F/U Remove Dressing in: leave in place till F/U Follow Up Care Please Follow Up With: Moshe Hylton MD When: As scheduled Test Results: Test results from this visit will be discussed in further detail at your follow-up appointment, if applicable. Discharge Plan Admission Admit Date/Time: 07/30/23 09:11 Attending Provider: Moshe Hylton Primary Care Provider: Corby Daniels Consulting Providers: Maximo Wilson Discharge Orders/Prescriptions Prescriptions: New acetaminophen 500 mg Tablet 1,000 mg PO Q8 28 Days Qty: 168 0RF aspirin 81 mg Tablet,Chewable 81 mg PO BIDCM 30 Days Qty: 60 0RF famotidine 20 mg Tablet 20 mg PO DAILY 28 Days Qty: 28 0RF meloxicam 7.5 mg Tablet 7.5 mg PO BIDCM Qty: 60 0RF oxycodone 5 mg Tablet 5 - 10 mg PO Q4H PRN PRN (Reason: Pain Score 4-10) 7 Days Qty: 48 0RF Continued rosuvastatin 5 mg tablet 5 mg PO DAILY Discontinued hydrocodone-acetaminophen 1 TABLET tablet 1 - 2 tab PO Q6H PRN PRN (Reason: MILD-MODERATE (PAIN SCALE 1-5)) Qty: 90 0RF Hold Instructions: ORDERED FOR POSTOP Patient Comments: PAIN aspirin 325 MG tablet 325 mg PO BIDCM Qty: 60 0RF Hold Instructions: ORDERED FOR POSTOP Patient Comments: BLOOD THINNER naproxen sodium [Aleve] 220 mg capsule 220 mg PO BID PRN (Reason: pain) acetaminophen 500 mg/15 mL liquid 500 mg PO Q6H PRN (Reason: pain) Referrals / Follow Up: Corby Daniels MD [Primary Care Provider] - Disposition Disposition (needs filled in before D/C Order can be placed): Home, Self Care
== END 2023-07-31 17:59 | disposition home or self-care (01) ==
LOC: SDC 13:18 → MS3 13:18
PROVIDERS: Orthopaedic Surgery; Admitting Provider Specialist; PCP Family Medicine; Referring Provider Specialist; Visit Provider Specialist
PROC: 0SRD0JZ Replacement of Left Knee Joint with Synthetic Substitute, Open Approach (ICD-10-PCS; CPT 27447; principal; 2023-07-30 09:15)
DX: M17.0 Bilateral primary osteoarthritis of knee (principal); E78.00 Pure hypercholesterolemia, unspecified; Z79.82 Long term (current) use of aspirin
CPT/HCPCS: 27447; S2900; 01402; 20610; 64447; 36415; 73560; 80048; 80061; 82306; 82962; 83735; 85027; 87077; 87081; 88305; 88311; 94668; 96365; 96366; 97162; 97166; 99221; 99252; C1776; J7120; G0378; G0463; J2405; J3475

== ENCOUNTER 2023-08-06 10:32 | Emergency (ER) | payer OTHER, SELFPAY ==
[2023-08-06 10:33] VITALS: BP 136/91; PULSE 131; RESP 18; TEMP 35.8; O2SAT 97
[2023-08-06 10:35] VITALS: BMI 28.7
--- NOTE | 2023-08-06 10:54 | EDS_ITS ---
HPI History of Present Illness HPI Narrative: Patient presents with pain and swelling to his left calf that has been getting worse over the past few days. Patient had a recent left total knee replacement by Dr. Hylton. Patient was having physical therapy today when the physical therapist noted he was walking on his toes. Patient states that it hurts to put his heel all the way down and bear weight. Patient states it hurts in his calf when he does this. Patient states he also has been having some pain with squeezing and touching his calf. Patient denies any fevers or chills. Patient denies any nausea or vomiting. Patient denies any chest pain or shortness of breath. Chief Complaint: Other, Pain/Inj Informant: patient Onset/Context/Timing Onset: Days Context: Gradual Onset Timing: Continuous Quality of Pain: Dull Location: Left calf Worsened by: Palpation, weightbearing Relieved by: Rest Associated Symptoms Associated Symptoms: Negative for Parasthesia, Weakness or Loss of Funtion PFSH PFSH Medical History (Updated 08/06/23 @ 11:[address] Jalen Parker, ) Arthritis Non-smoker Wears glasses Home Medications rosuvastatin 5 mg tablet 5 mg PO DAILY 07/30/23 [History Last Taken 07/29/23] acetaminophen 500 mg tablet 1,000 mg (2 x 500 mg) PO Q8 pain 4 weeks #168 tabs 07/31/23 [Rx Last Taken Unknown] aspirin 81 mg chewable tablet 81 mg PO BIDCM 30 days #60 tabs 07/31/23 [Rx Last Taken Unknown] famotidine 20 mg tablet 20 mg PO DAILY 4 weeks #28 tabs 07/31/23 [Rx Last Taken Unknown] meloxicam 7.5 mg tablet 7.5 mg PO BIDCM #60 tabs 07/31/23 [Rx Last Taken Unknown] oxycodone 5 mg tablet 5 - 10 mg (1 - 2 x 5 mg) PO Q4H PRN PRN Pain Score 4-10 1 week #48 tabs 07/31/23 [Rx Last Taken Unknown] Allergy/AdvReac Type Severity Reaction Status Date / Time No Known Allergies Allergy Verified 08/06/23 10:33 Surgical History (Updated 08/06/23 @ 11:[address] Jalen Parker, ) History of left hip replacement History of right hip replacement History of total left knee replacement (TKR) History of vein stripping Social History Smoking Status: Never smoker ROS ROS ED Constitutional Constitutional ED: Denies chills or fever(s) Eyes Eyes: Denies blurry vision or change in vision ENT ENT ED: Denies rhinorrhea or sore throat Cardiovascular Cardiovascular: Denies chest pain or palpitations Respiratory/Chest Respiratory/Chest: Denies cough or dyspnea Gastrointestinal Gastrointestinal: Denies nausea or vomiting Genitourinary Genitourinary ED: Denies dysuria or hematuria Musculoskeletal Musculoskeletal: Denies back pain or neck pain Integumentary Denies abscess or rash Neurologic Neurologic: Denies headache(s) or weakness Allergic/Immunologic Allergic/Immunologic ED: Denies mouth swelling or urticaria EXAM Physical Exam Const Vital Signs: 08/06/23 10:33 08/06/23 10:33 Temperature 96.5 F L Temperature Source Temporal Pulse Rate 131 H Respiratory Rate 18 Respiratory Effort Normal Non-Labored Respiratory Pattern Normal Blood Pressure 136/91 H Blood Pressure Mean 106 Pulse Ox 97 Oxygen Delivery Method Room Air Positive well nourished and well developed General Appearance ED: well developed and NAD HEENT Reports moist mucous membranes normocephalic Neck full ROM and supple Extremity Extremity Narrative: There is edema and tenderness over the left calf. There is some ecchymosis over the anterior aspect of the left knee and lower leg. The left ankle. The incisions over the left knee and left lower leg are healing well. There is mild healing erythema around the wounds. There is no discharge or drainage noted. There is no tenderness over the incisions. Pedal pulses are equal bilaterally. Sensation was intact to light touch bilaterally in the lower extremities. Strength is 5/5 bilaterally in the lower extremities. Neuro oriented x3, CN's II-XII intact bilaterally, moves all extremities and no sensory deficits noted Sensorium / Orientation: alert Motor Exam: strength 5/5 throughout Psych mental status grossly normal MDM MDM MDM Narrative Medical decision making narrative: Differential diagnosis includes DVT, calf strain, postoperative pain, and infection. Venous duplex of the left lower extremity will be obtained to assess for DVT. CBC will be obtained to assess for leukocytosis and anemia. Basic metabolic profile will be obtained to assess for electrolyte abnormality and renal function. PT with INR and PTT will be obtained to assess for coagulopath y. Lab Data Attestation: I reviewed the patient's lab results. Lab results narrative: CBC was reviewed and was essentially within normal limits. Basic metabolic profile was reviewed and was within normal limits. PT with INR and PTT were reviewed and were within normal limits. Labs: Laboratory Results - last 24 hr 08/06/23 11:10 WBC 10.5 RBC 4.82 Hgb 12.8 L Hct 40.0 MCV 83.0 MCH 26.6 L MCHC 32.0 RDW Std Deviation 42.2 RDW Coeff of Zeke 14.1 Plt Count 291 MPV 8.4 Immature Gran % (Auto) 1.000 H Neut % (Auto) 78.5 H Lymph % (Auto) 11.5 L [place] % (Auto) 7.1 Eos % (Auto) 1.2 Baso % (Auto) 0.7 Absolute Neuts (auto) 8.2 H Absolute Lymphs (auto) 1.21 Nucleated RBC % 0 PT 14.4 INR 1.1 APTT 32.2 Sodium 138 Potassium 3.9 Chloride 104 Carbon Dioxide 26.0 Anion Gap 8 BUN 13 Creatinine 0.70 Estim Creat Clear Calc 113.70 Est GFR (MDRD) Af Amer 146 Est GFR (MDRD) Non-Af 120 BUN/Creatinine Ratio 18.5 Glucose 104 Calcium 9.2 Radiography Diagnostic Testing: Venous duplex of the left lower extremity was obtained. There is no evidence of DVT. Treatment and Re-Evaluation Narrative: Patient was advised of his findings. Patient was instructed to continue ice and elevation. Patient was instructed to follow-up with his primary care physician and orthopedic surgeon as scheduled. Patient was instructed to continue his physical therapy. Patient understood and was agreeable with the plan. All questions were answered. Discharge Plan Triage Chief Complaint: Other, Pain/Inj ED Provider: Jalen Parker Dx/Rx/DC Orders Clinical Impression: Pain of left calf, Status post total left knee replacement not using cement Instructions: ED Pain, Acute, Uncertain Cause, ED RICE Prescriptions: No Action rosuvastatin 5 mg tablet 5 mg PO DAILY acetaminophen 500 mg Tablet 1,000 mg PO Q8 28 Days Qty: 168 0RF aspirin 81 mg Tablet,Chewable 81 mg PO BIDCM 30 Days Qty: 60 0RF famotidine 20 mg Tablet 20 mg PO DAILY 28 Days Qty: 28 0RF meloxicam 7.5 mg Tablet 7.5 mg PO BIDCM Qty: 60 0RF oxycodone 5 mg Tablet 5 - 10 mg PO Q4H PRN PRN (Reason: Pain Score 4-10) 7 Days Qty: 48 0RF Primary Care Provider: Corby Daniels Referrals: Corby Daniels MD [Primary Care Provider] - Disposition Disposition: Home, Self Care
--- NOTE | 2023-08-06 10:59 | VDLE_ITS ---
Reason For Study: LLE Pain Procedure LEFT This is a venous duplex using B-mode, color GSV is normal. flow and spectral Doppler. CFV is compressible, spontaneous, phasic, Exam performed portable in ED. competent, and demonstrates normal The exam was diagnostic. augmentation. A preliminary report was called and/or faxed FV is compressible, spontaneous, phasic, to Dr. Parker. competent and demonstrates normal augmentation. POP V is compressible, spontaneous, phasic, competent and demonstrates normal augmentation. T/P Trunk is compressible. PTV is compressible. LT PerV is compressible. VL/Venous Duplex US, Unilateral Interpretation Summary Deep veins of the left lower extremity are patent and compressible segmentally. There is no evidence of left lower extremity deep vein thrombosis. Valvular competence appears intac t within the proximal deep venous system on the left . The left great saphenous vein appears patent a nd compressible segmentally. Ordering Physician: Jalen Parker Referring Physician: Corby Daniels Performed By: Cory Tyler RVT
[2023-08-06 11:24] LABS: Absolute Lymphocyte Count 1.21 X10^3/uL (0.83-4.51); Absolute Neutrophil Count 8.2 X10^3/uL (2.0-7.7); Basophil# 0.07 X10^3/uL; Basophil% 0.7 % (0-1); Eosinophil# 0.13 X10^3/uL; Eosinophils% 1.2 % (0-5); Hemoglobin 12.8 g/dL (13.0-16.5); Lymphocyte # 1.21 X10^3/ul (0.83-4.51); Lymphocyte % 11.5 % (19-41); Mean Corpuscular Hgb 26.6 pg (27.0-32.0); Mean Platelet Vol. 8.4 fl (6.2-12.0); Monocyte# 0.75 X10^3/uL; Monocyte% 7.1 % (0-10); NRBC Flagged by Analyzer 0 % (0-5); Neutrophil # 8.23 X10^3/uL (2.7-7.7); Neutrophil % 78.5 % (47-70); Platelet Count 291 K/mm3 (150-450); RBC Distribution Width CV 14.1 % (11.6-14.6); RBC Distribution Width SD 42.2 fl (35.1-43.9); Red Blood Count 4.82 M/mm3 (4.6-6.2); White Blood Count 10.5 K/mm3 (4.4-11.0)
[2023-08-06 11:28] LABS: International Normalized Ratio 1.1; Prothrombin Time (Protime)PT. 14.4 SECONDS (11.7-14.9)
[2023-08-06 11:30] LABS: Partial Thromboplast Time 32.2 Seconds (24.1-36.2)
[2023-08-06 11:33] LABS: Anion Gap 8 (5-15); BUN 13 mg/dL (7-18); BUN/Creat Ratio 18.5 RATIO (10-20); Calcium,Total 9.2 mg/dL (8.5-10.1); Chloride 104 mmol/L (98-107); EST Glomerular Filtration Rate 120 mL/min (>60); Est Glom Filt Rate - Afr Amer 146 mL/min (>60); Glucose 104 mg/dL (74-106); Potassium 3.9 mmol/L (3.5-5.1); Sodium Level 138 mmol/L (136-145)
[2023-08-06 11:45] VITALS: BP 137/84; PULSE 104; RESP 15; TEMP 36.6; O2SAT 97
== END 2023-08-06 11:47 | disposition home or self-care (01) ==
PROVIDERS: Emergency Provider Emergency Medicine; PCP Family Medicine; Visit Provider Emergency Medicine
DX: M79.662 Pain in left lower leg (principal); Z96.652 Presence of left artificial knee joint; Z79.82 Long term (current) use of aspirin; Z79.899 Other long term (current) drug therapy
CPT/HCPCS: 80048; 85025; 85610; 85730; 93971; 99283

== ENCOUNTER → 2025-02-06 | Outpatient (CLI) | payer MEDICARE, SELFPAY ==
[2025-02-06 19:03] LABS: AST(SGOT) 21 U/L (<=37); Alanine Aminotransfer ALT/SGPT 18 U/L (<=46); Albumin, Serum 4.2 g/dL (3.4-4.8); Alkaline Phosphatase 75 U/L (40-129); Anion Gap 11 (5-15); BUN 9 mg/dL (4-19); BUN/Creat Ratio 12.8 RATIO (10-20); Calcium,Total 9.5 mg/dL (7.6-11.0); Carbon Dioxide 24.4 mmol/L (21.0-32.0); Chloride 104 mmol/L (98-108); Cholesterol 209 mg/dL (<=200); Globulin 3.0 g/dL (2.2-4.2); Glucose 90 mg/dL (70-99); Low Density Lipoprotein Calc. 132 mg/dL; PSA,Total - Annual Screen 5.59 ng/mL (0.02-4.00); Potassium 3.9 mmol/L (3.3-5.1); Triglycerides 201 mg/dL; Very Low Density Lipoprotein 40 mg/dL (5-40); cholesterol:hdl ratio screen 5.63
== END | disposition home or self-care (01) ==
LOC: MTLAB 15:27
PROVIDERS: PCP Family Medicine; Referring Provider Family Medicine; Visit Provider Family Medicine
DX: Z00.00 Encounter for general adult medical examination without abnormal findings (principal); Z12.5 Encounter for screening for malignant neoplasm of prostate
CPT/HCPCS: 36415; 80053; 80061; 84153; G0103